=== PATIENT | female | born 1975 | race Caucasian/White ===

== ENCOUNTER 2021-02-07 01:17 | Emergency (ER) | payer BC, OTHER ==
[~2021-02-07] VITALS: Ht 167.6 cm; Wt 69.8 kg
[2021-02-07] MEDS ORDERED: ACYCLOVIR SODI500 MG IV (02:22)
[2021-02-07] MEDS ORDERED: VALIUM10 MG PO (02:23)
[2021-02-07 04:27] LABS: AMP/METHAMP Negative (Negative); BARBITURATES Negative (Negative); BENZODIAZEPINES POSITIVE (Negative); COCAINE Negative (Negative); METHADONE Negative (Negative); OPIATES Negative (Negative); PCP Negative (Negative)
[2021-02-07 07:20] LABS: URINE BILIRUBIN NEGATIVE (Negative); URINE BLOOD NEGATIVE (Negative); URINE CLARITY CLEAR; URINE GLUCOSE-RANDOM* NEGATIVE (Negative); URINE KETONES NEGATIVE (Negative); URINE LEUKOCYTES-REFLEX NEGATIVE (Negative); URINE NITRITE-REFLEX NEGATIVE (Negative); URINE PROTEIN (DIPSTICK) NEGATIVE (Negative); URINE SPECIFIC GRAVITY <= 1.005 (1.005-1.035); URINE UROBILINOGEN 0.2 E.U./dl (0.2-1.0)
[2021-02-07 07:22] LABS: URINE COLOR COLORLESS
[2021-02-07 07:36] LABS: ABSOLUTE NEUTROPHILS 2.2 thou/uL (1.4-8.2); BASOPHILS 0.5 % (0.0-2.0); EOSINOPHILS 6.9 % (0.0-3.0); HEMATOCRIT 41.1 % (37.0-47.0); HEMOGLOBIN 14.2 gm/dL (12.0-15.0); LYMPHOCYTES 29.4 % (24.0-44.0); MCH 33.9 pg (26.0-34.0); MCHC 34.5 g/dL (28.0-37.0); MCV 98.3 fL (80.0-100.0); MONOCYTES 9.5 % (1.0-8.0); PLATELET COUNT 178 thou/uL (150-400); POLYS 53.7 % (36.0-66.0); RBC 4.18 mil/uL (4.20-5.00); WBC 4.1 thou/uL (4.0-11.0)
[2021-02-07 07:56] LABS: ANION GAP 8 mmol/L (7-16); BUN 7 mg/dL (7-18); CALCIUM 8.9 mg/dL (8.5-10.1); CHLORIDE 106 mmol/L (98-107); CO2 27 mmol/L (21-32); CREATININE 0.8 mg/dL (0.6-1.0); GLUCOSE 92 mg/dL (74-106); POTASSIUM 3.8 mmol/L (3.5-5.1); SODIUM 141 mmol/L (136-145)
[2021-02-07 08:02] LABS: ALBUMIN 3.6 g/dL (3.4-5.0); MAGNESIUM 1.9 mg/dL (1.8-2.4); SALICYLATE 3.7 mg/dL (2.8-20.0); SGOT 30 U/L (15-37); SGPT 47 U/L (14-59); TOTAL BILIRUBIN 0.3 mg/dL (0.2-1.0); TOTAL PROTEIN 7.2 g/dL (6.4-8.2)
--- NOTE | 2021-02-07 14:52 | NUR ---
SHANNAN contacted Carmen at [facility], . Carmen was aware of the Pt and stated she recieved the Pt's COVID test but had not recieved a referral on the Pt. Carmen asked that the referral be sent to [phone]. Once recieved [facility] will review the Pt for the detox program. SHANNAN contacted Oksana Torres, , concerning the matter. Oksana informed the assessment was completed by [facility]. Oksana provided SHANNAN with the number to [facility] line [phone]. SHANNAN contacted the access line and spoke with Noel. SHANNAN explained [facility] did not recieved the referral. Mateusz informed it was faxed at 8 am. SHANNAN requested the referral be refaxed as soon as possible. While on the phone Mateusz confirmed he refaxed the referral to [facility]. SHANNAN team will follow up.
--- NOTE | 2021-02-07 17:18 | NUR ---
@1600 and 1702 SHANNAN contacted [facility] concerning the referral. On both calls SHANNAN was informed the assessors where not avalable to confirm the fax was recieved or if Pt was able to be admitted today. SHANNAN left call contact information for a call back. As of this note SHANNAN has not recieved a call back from anyone at [facility] concerning the assessment.
[2021-02-07 19:54] VITALS: BP 105/66
== END 2021-02-07 19:57 | disposition home or self-care (01) ==
LOC: ER 01:17
PROVIDERS: Emergency Medicine
DX: F32.9 Major depressive disorder, single episode, unspecified (principal); F10.10 Alcohol abuse, uncomplicated; Z90.710 Acquired absence of both cervix and uterus; Z79.899 Other long term (current) drug therapy; Z20.822 Contact with and (suspected) exposure to COVID-19; Y90.3 Blood alcohol level of 60-79 mg/100 ml